=== PATIENT | female | born 1960 | race African-American/Black ===

== ENCOUNTER 2024-03-08 09:51 | Emergency (ER) | payer SELFPAY ==
[~2024-03-08] VITALS: Ht 165.1 cm; Wt 72.6 kg
[2024-03-08] MEDS ORDERED: SODIUM CHLORIDE 0.9% 1,000 ML IV ONE ×3 (10:05→13:35)
[2024-03-08] MEDS ORDERED: INSULIN REGULAR, HUMAN 1 UNIT/0.01 ML SC ONE (10:30)
[2024-03-08 11:27] LABS: BASO % 0.2 % (0.0-1.0)
[2024-03-08 11:37] LABS: HEMATOCRIT 41.9 % (37.0-47.0); MEAN CELL VOLUME 74.4 fl (81.0-99.0); MEAN CORPUSCULAR HGB 23.1 pg (27.0-31.0); MEAN PLATELET VOLUME 10.9 fl (9.6-12.3); MONO # 0.7 10*3/uL (0.1-1.0); NEUT % 69.5 % (47.0-73.0); PLATELET COUNT AUTOMATED 254 10*3/uL (130-400); RED BLOOD COUNT 5.63 10*6/uL (4.10-5.10); RED CELL DISTRI WIDTH 14.6 % (0-14.5); WHITE BLOOD COUNT 8.7 10*3/uL (4.8-10.8)
[2024-03-08] MEDS ORDERED: INSULIN LISPRO 1 UNIT/0.01 ML IV ONE ×2 (12:45→13:30)
[2024-03-08 13:06] LABS: POTASSIUM 4.6 mmol/L (3.4-5.1); TOTAL PROTEIN 8.1 gm/dL (6.0-8.0)
[2024-03-08] MEDS ORDERED: INSULIN REGULAR IN 0.9 % NACL 100 ML IV SCH (13:30)
[2024-03-08] MEDS ORDERED: METFORMIN HYDR500 MG PO (14:01)
[2024-03-08 14:06] LABS: BILIRUBIN Negative (Negative); BLOOD Negative (Negative); CLARITY Clear (Clear); COLOR Yellow (Yellow); GLUCOSE 3+ (Negative); KETONE 2+ (Negative); LEUKO ESTERASE Negative (Negative); NITRITE Negative (Negative); SPECIFIC GRAVITY 1.025 (1.001-1.030); UROBILINOGEN 0.2 E.U./dl (0.0-1.0)
[2024-03-08 14:32] LABS: BACTERIA 1+; WBC 21-30 wbc/hpf (0-5)
== END 2024-03-08 19:01 | disposition left against medical advice (07) ==
LOC: ED 09:51
PROVIDERS: Student in an Organized Health Care Education/Training Program
DX: E11.65 Type 2 diabetes mellitus with hyperglycemia (principal); N17.9 Acute kidney failure, unspecified; E11.22 Type 2 diabetes mellitus with diabetic chronic kidney disease; N18.32 Chronic kidney disease, stage 3b; E87.1 Hypo-osmolality and hyponatremia; Z53.29 Procedure and treatment not carried out because of patient's decision for other reasons